=== PATIENT | female | born 1995 | race Two or more races ===

== ENCOUNTER 2017-06-03 00:09 | Emergency (ER) | payer SELFPAY ==
[~2017-06-03] VITALS: Ht 167.6 cm; Wt 72.6 kg
--- NOTE | 2017-06-03 00:15 | NUR ---
DR. MIXON AT BEDSIDE FOR MSE.
--- NOTE | 2017-06-03 00:20 | NUR ---
PATIENT ELOPED AFTER BEING SEEN BY DR. MIXON.
--- NOTE | 2017-06-03 00:22 | NUR ---
PATIENT AMBULATING IN WAITING ROOM WITH STEADY GAIT AND SPEAKING CLERALY WITH FRIENDS. PATIENT STATES "I DON'T WANT TO BE TREATED.I AM OK." PATIENT FRIEND URGE PATIENT TO BE TREAT FOR HER NAUSEA HOWEVER PATIENT STILL REFUSED. FRIENDS AGREE TO TAKE PATIENT HOME AND WILL TAKE PATIENT BACK TO ER IS SYMTOMS WORSEN
[2017-06-03] MEDS ORDERED: ONDANSETRON ODT 4 MG TAB.RAPDIS SL ONE (00:30)
--- NOTE | 2017-06-03 00:30 | NUR ---
NICHOLAS SPEAKING WITH PATIENT AND FRIEND ON [facility] AND NICHOLAS ASKED IF PATIENT WANTED TO TX BUT PATIENT REFUSED.
== END 2017-06-03 00:57 | disposition left against medical advice (07) ==
LOC: ER 00:15
DX: R41.82 Altered mental status, unspecified (principal); Z53.29 Procedure and treatment not carried out because of patient's decision for other reasons
CPT/HCPCS: 99284; A4663